=== PATIENT | male | born 1955 | race Caucasian/White ===

== ENCOUNTER 2023-07-13 11:50 | Emergency (ER) | payer MEDICARE, OTHER, SELFPAY ==
[2023-07-13 11:52] VITALS: BP 159/97
--- NOTE | 2023-07-13 12:48 | ED.GENMED ---
History of Present Illness
General
Chief Complaint: Back Pain
Source: patient
Time Seen by Provider: 07/13/23 12:35
Travel History
Have you had any contact with someone who has COVID-19?: No
Do you have any symptoms of coronavirus? Fever > 100 degrees, chills, cough, shortness of breath, sore throat, loss of taste or smell, muscle aches, or headache?: No
History of Present Illness
History of Present Illness:
This patient is a 68-year-old male who says he was feeling perfectly well until he woke up this morning when he noted discomfort in his right lower back. It feels like a 'punch'. He needed assistance getting out of bed, and when he did get out of
bed the pain subsided. He said he went about his morning and 'everything was good'. He then drove to a local park and went for short walk and noticed that the pain returned in the same location which prompted his visit here. He currently does not
have pain here in the bed. He notes the pain comes on when he moves a certain way such as sitting or standing up or twisting his torso. It is better when he lays down. He has slight nausea but denies vomiting. He denies fever, chills, rash,
chest pain, dyspnea, recent trauma or falls. He denies radiation of the pain. He denies associated weakness, numbness, tingling, abdominal pain, perianal anesthesia, incontinence, retention. He denies any other symptoms. He was worried that it
may be related to his kidney which prompted his visit here as well
Past History
Past History
ED Past Medical History: GERD, Psychiatric and Other (diverticulitis, kidney stone)
ED Past Surgical History: Orthopedic
Social History
Tobacco: Former smoker
Alcohol: Occasional
Drug: None
Personal:
Living: with family
Phy Exam
Physical Exam
Physical Exam:
GENERAL: Alert , in no apparent distress, extremely well-appearing
EYE: pupils equal and reactive
NECK: Supple, no significant adenopathy.
ENT: o/p clr, mmm.
CARDIAC: Regular rate and rhythm .
LUNGS: Clear breath sounds bilaterally, no acute respiratory distress, no wheezes/rales/rhonchi
ABDOMEN: Soft, without focal tenderness, no r/g, no pulsatile abdominal mass
NEUROLOGICAL: Alert and oriented, no focal neuro deficits, 2+ patellar reflexes bilaterally, negative SLR, motor 5 out of 5, sensory intact
SKIN: Warm and dry, skin intact.
MUSCULOSKELETAL: No edema, well perfused.
PSYCH: Normal and appropriate interaction.
Back no midline tenderness to palpation, no rash, mild discomfort with palpation of the right paraspinous area
Course
Orders/Labs/Results
Orders:
Orders
07/13/23 12:47
Ketorolac [Toradol] 15 mg IM NOW STA
07/13/23 12:51
US Renal Only W/O Bladder Urgent
Comment:
Reason For Exam: r sided pain, hx stones
07/13/23 12:54
UA Reflex to Culture [Urinalysis Reflex To Culture] Stat
Date Specimen was Collected: 07/13/23
Time Specimen was Collected: 12:48
Vital Signs
Initial and Last Documented VS:
Initial Vital Signs
Temp Pulse Resp BP Pulse Ox
97.9 F 72 18 159/97 96
07/13/23 11:52 07/13/23 11:52 07/13/23 11:52 07/13/23 11:52 07/13/23 11:52
Last Documented Vital Signs
Temp Pulse Resp BP Pulse Ox
97.9 F 72 18 159/97 96
07/13/23 11:52 07/13/23 11:52 07/13/23 11:52 07/13/23 11:52 07/13/23 11:52
*Critical Care Note
Total Time (30-74mins, 75-104mins- exclusive of procedures): Not Applicable
Update Note
Update Note:
Patient presents to the Emergency Department with __back pain
Number and Complexity of Problems Addressed at the Encounter
� Chronic conditions affecting care:
� Acute Exacerbation and/or Progression of Chronic Illness:
� Differential Diagnosis includes: But not limited to muscular strain, zoster, kidney stone, etc.
Amount and/or Complexity of Data to be Reviewed and Analyzed
� I performed an independent evaluation of and my interpretation is:
EKG:
CT:
Xrays:
Laboratory Studies:
Other: Ultrasound shows renal cysts
� Review of other/old records reveals: Patient was seen for similar symptoms August 2021
� Clinical information was obtained by an independent historian:
� Prescriptions/Medications Considered but not given:
� Further testing considered but not performed:
Risk of Complications and/or Morbidity or Mortality of Patient Management
� Social determinants of health affecting care:
� Discussion with other providers (PCP, Hospitalists, Consultants, etc):
� Escalation of care including admission/observation vs risk of discharge considered: 3:07 PM met with patient and who is now present. Patient feels symptoms are much better status post Toradol. No new symptoms. No 'red
flag' findings to suggest acute neurovascular or other worrisome events. Discussed with patient workup here including findings of renal cysts, importance of follow-up and reasons to return to the ER.
ED Attending Note
-
Portions of this chart may have been created with voice recognition software.� Occasional wrong word or��sound alike� substitutions may have occurred due to the inherent limitations of voice recognition software.
Discharge Plan
Departure
Patient Disposition: Home (Routine Discharge)
Date of Disposition: 07/13/23
Time of Disposition: 15:05
Patient with high blood pressure during this ER visit?: Yes
Condition: Good
Discharge Problem:
Back pain
Instructions: Low Back Pain (DC), BLOOD PRESSURE
Prescriptions:
New
cyclobenzaprine 5 mg tablet
5 mg PO TID PRN (Reason: muscle spasm) Qty: 13 0RF
No Action
omeprazole 20 MG capsule,delayed release(DR/EC)
20 mg PO BID
testosterone [Axiron] 30 MG/1.5 ML solution in metered pump w/teressa
1 applic topical DAILY
Fluoxetine HCl
1 tab PO DAILY
Patient Comments:
Pt does not know dose
metronidazole 500 MG tablet
500 mg PO TID Qty: 30 0RF
levofloxacin 500 MG tablet
500 mg PO DAILY Qty: 10 0RF
prednisone 10 MG tablet
10 mg PO .TAPER Qty: 30 0RF
Rx Instructions:
Take 40mg daily x3days, 30mg daily x3days,
20mg daily x3days, 10mg daily x3days.
oxycodone-acetaminophen 5 MG/325 MG tablet
1 tab PO Q4HPRN PRN (Reason: pain) Qty: 12 0RF
oxycodone-acetaminophen [Percocet] 5-325 mg Tablet
1 tab PO Q6HPRN PRN (Reason: pain) Qty: 12 0RF
tamsulosin [Flomax] 0.4 mg Capsule
0.4 mg PO DAILY Qty: 7 0RF
ondansetron 4 mg Tablet,Disintegrating
4 mg PO TIDPRN PRN (Reason: nausea/vomiting) Qty: 12 0RF
Referrals:
Carla Mcgill, [Family Provider] - Follow up in 2-3 days
Activity Restrictions/Additional Instructions:
IF YOU DEVELOP INCREASING/NEW/PERSISTENT PAIN, NUMNBESS, WEAKNESS, DIFFICULTY WALKING, INCONTINENCE, FEVER, OR OTHER WORRISOME SIGNS, GO TO THE ER IMMEDIATELY!
Interventions
Interventions:
ED- Fall Risk Assessment Last Done: 07/13/23 13:10
ED-Musculoskeletal Assessment Last Done: 07/13/23 13:09
[2023-07-13] MEDS: TORADOL 15 MG IM (12:52)
[2023-07-13 13:08] LABS: Urine Albumin Negative (Neg - Trace); Urine Bilirubin Negative (Negative); Urine Character Clear (Clear); Urine Color Yellow; Urine Glucose Negative (Negative); Urine Ketone Negative (Negative); Urine Leukocyte Negative (Negative); Urine Nitrite Negative (Negative); Urine Occult Blood Negative (Negative); Urine Specific Gravity 1.015 (<1.030); Urine Urobilinogen Negative (Neg - 1+)
[2023-07-13 15:19] VITALS: BP 159/97
== END 2023-07-13 15:21 | disposition home or self-care (01) ==
LOC: EMR 11:50
PROVIDERS: EMERGENCY PHYSICIAN Emergency Medicine; FAMILY PHYSICIAN Internal Medicine
DX: M54.50 Low back pain, unspecified (principal); R11.0 Nausea; K21.9 Gastro-esophageal reflux disease without esophagitis; K57.92 Diverticulitis of intestine, part unspecified, without perforation or abscess without bleeding; Z87.891 Personal history of nicotine dependence; Z87.442 Personal history of urinary calculi
CPT/HCPCS: 99284; 96372; 76775; 81003

== ENCOUNTER → 2023-09-02 12:50 | Outpatient (REF) | payer MEDICARE, OTHER, SELFPAY | LOC: PAVMRI 12:50 | PROVIDERS: ATTENDING PHYSICIAN Internal Medicine | DX: M51.36 Other intervertebral disc degeneration, lumbar region (principal) | CPT/HCPCS: 72148 ==

== ENCOUNTER → 2023-11-30 13:22 | Outpatient (REF) | payer MEDICARE, OTHER, SELFPAY | LOC: HWRCS 13:22 | PROVIDERS: ATTENDING PHYSICIAN Internal Medicine Cardiovascular Disease; FAMILY PHYSICIAN Internal Medicine | DX: R07.9 Chest pain, unspecified (principal); R94.31 Abnormal electrocardiogram [ECG] [EKG] | CPT/HCPCS: 93306 ==